=== PATIENT | male | born 1990 | race Hispanic/Latino ===

== ENCOUNTER 2022-12-04 00:48 | Emergency (ER) | payer OTHER ==
[~2022-12-04] VITALS: Ht 172.7 cm; Wt 138.3 kg
[2022-12-04] MEDS ORDERED: KETOROLAC TROMETHAMINE 60 MG/2 ML VIAL IM ONE (01:00)
[2022-12-04] MEDS ORDERED: Morphine 4mg INJECTION 4 MG/ML INJ IM STA (02:05)
[2022-12-04] MEDS ORDERED: ACETAMINOPHEN-1 EAC4 PO ×2 (03:05→03:22)
[2022-12-04 03:10] VITALS: BP 145/78
== END 2022-12-04 03:05 | disposition home or self-care (01) ==
LOC: ER 00:51
DX: M54.42 Lumbago with sciatica, left side (principal)
CPT/HCPCS: 72131; 99283; J1885; J2270